=== PATIENT | male | born 1950 | race Caucasian/White ===

== ENCOUNTER → 2016-11-18 | Outpatient (CLI) | payer OTHER ==
--- NOTE | 2016-11-18 11:14 | DIAGNOSTIC IMAGING REPORT ---
SINGLE VIEW PELVIS; 2 VIEWS RIGHT HIP CLINICAL HISTORY: Low back pain. Right hip pain. FINDINGS: An AP view of the pelvis with AP and frog-leg views of the right hip are obtained. No prior studies are available for comparison at the time of dictation. The skeletal structures are well mineralized. No fracture is seen. Mild arthritic changes present in both hips with minimal joint space narrowing. There is bony prominence seen along the anterior/superior aspect of the right femoral/head neck junction. The sacroiliac joints are normal as visualized. Calcified phleboliths are observed in the pelvis. The overlying soft tissues are within normal limits. There is a nonobstructed abdominal bowel gas pattern. IMPRESSION: 1. Mild degenerative change with no acute bony abnormality seen in the hips or pelvis. 2. There is mild bony prominence seen along the anterior/superior aspect of the right femoral head/neck junction. 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 Clinical correlation will be required. Electronically signed by: Willian Castillo M.D. 11/18/2016 11:13 AM Dictated Date/Time: 11/18/2016 11:10 AM
== END | disposition home or self-care (01) ==
LOC: C.RAD 10:11
PROVIDERS: ATTEND Family Medicine
DX: M54.5 Low back pain (principal); M54.16 Radiculopathy, lumbar region; M25.551 Pain in right hip

== ENCOUNTER → 2017-08-12 | Outpatient (CLI) | payer OTHER ==
[2017-08-12 13:15] LABS: CHOLESTEROL/HDL RATIO 3.4; PROSTATE SPECIFIC ANTIGEN 0.647 ng/ml (0.000-4.000)
== END | disposition home or self-care (01) ==
LOC: C.LABMFLN 08:23
PROVIDERS: ATTEND Family Medicine
DX: E78.00 Pure hypercholesterolemia, unspecified (principal); Z12.5 Encounter for screening for malignant neoplasm of prostate